=== PATIENT | male | born 1965 | race Two or more races ===

== ENCOUNTER 2018-01-14 09:43 | Emergency (ER) | payer OTHER ==
[~2018-01-14] VITALS: Ht 177.8 cm; Wt 77.1 kg
[~2018-01-14 09:43] MED LIST: CIPRO500 MG PO; INTESTINEX1 CAP PO
== END 2018-01-14 14:48 | disposition home or self-care (01) ==
LOC: ER 09:43
DX: J06.9 Acute upper respiratory infection, unspecified (principal)

== ENCOUNTER 2018-06-12 21:25 | Emergency (ER) | payer OTHER ==
[~2018-06-12] VITALS: Ht 177.8 cm; Wt 74.8 kg
[2018-06-12] MEDS ORDERED: COZAAR25 MG (21:46)
[2018-06-13] MEDS ORDERED: PROMETH-CODEIN 65 ML PO (01:18)
[2018-06-13] MEDS ORDERED: ZITHROMAX500 MG PO (01:18)
[2018-06-13] MEDS ORDERED: SYMBICORT 16010.2 GM IH (01:18)
[2018-06-13] MEDS ORDERED: MUCINEX DM ER1 EAC1 PO (01:18)
== END 2018-06-13 01:26 | disposition home or self-care (01) ==
LOC: ER 21:25
DX: J06.9 Acute upper respiratory infection, unspecified (principal); B34.9 Viral infection, unspecified

== ENCOUNTER 2018-09-25 11:27 | Emergency (ER) | payer OTHER ==
[~2018-09-25] VITALS: Ht 177.8 cm; Wt 80.7 kg
[~2018-09-25 11:27] MED LIST changes: +COZAAR25 MG; +MUCINEX DM ER1 EAC1 PO; +PROMETH-CODEIN 65 ML PO; +SYMBICORT 16010.2 GM IH; +ZITHROMAX500 MG PO
[2018-09-25] MEDS ORDERED: AZITHROMYCIN250 MG (12:13)
== END 2018-09-25 16:25 | disposition home or self-care (01) ==
LOC: ER 11:27
DX: J11.1 Influenza due to unidentified influenza virus with other respiratory manifestations (principal); J40 Bronchitis, not specified as acute or chronic